=== PATIENT | female | born 1975 | race Caucasian/White ===

== ENCOUNTER 2019-07-07 17:42 | Emergency (ER) | payer SELFPAY ==
[~2019-07-07] VITALS: Ht 170.2 cm; Wt 100.0 kg
[2019-07-07 19:38] LABS: BASOPHILS % 0.3 % (0.0-2.0); EOSINOPHILS % 1.2 % (0.0-5.0); HEMATOCRIT. 29.6 % (36.0-48.0); HEMOGLOBIN. 9.6 g/dL (12.0-16.0); LYMPHOCYTES % 36.7 % (20.0-50.0); MEAN CORPUSCULAR HEMOGLOBIN 22.4 pg (28.0-32.0); MEAN CORPUSCULAR VOLUME 69.2 fL (81.0-99.0); MEAN PLATELET VOLUME 7.5 fl (7.4-10.4); MONOCYTES % 6.6 % (2.0-8.0); NEUTROPHILS % 55.2 % (40.0-76.0); PLATELET 344 x1000/uL (130-400); RED BLOOD CELL COUNT 4.27 mill/uL (4.2-5.4); RED CELL DISTRIBUTION WIDTH 21.8 % (11.6-14.6)
[2019-07-07 19:43] LABS: CHLORIDE 108 mEq/L (98-107)
[2019-07-07 19:54] LABS: B-HCG QUANTITATIVE < 1 mIU/mL (<3)
[2019-07-07 20:46] LABS: PLATELET ESTIMATE NORMAL
[2019-07-07] MEDS ORDERED: ACETAMINOPHEN 325MG TABLET PO ONE (21:15)
[2019-07-07] MEDS ORDERED: IBUPROFEN 400MG TABLET PO ONE (21:15)
[2019-07-07 21:43] VITALS: BP 165/85
== END 2019-07-07 21:46 | disposition home or self-care (01) ==
LOC: ER 17:42
DX: N93.9 Abnormal uterine and vaginal bleeding, unspecified (principal); R03.0 Elevated blood-pressure reading, without diagnosis of hypertension
CPT/HCPCS: 36415; 81025; 84702; 86850; 86900; 99283

== ENCOUNTER 2025-07-19 18:56 | Emergency (ER) | payer SELFPAY ==
[~2025-07-19] VITALS: Ht 167.6 cm; Wt 106.0 kg
[2025-07-19 18:59] VITALS: O2SAT 98
[2025-07-19 19:35] LABS: BASOPHILS % 0.5 % (0.0-2.0); EOSINOPHILS % 0.8 % (0.0-5.0); HEMATOCRIT. 41.8 % (36.0-48.0); HEMOGLOBIN. 14.0 g/dL (12.0-16.0); LYMPHOCYTES % 30.7 % (20.0-50.0); MEAN PLATELET VOLUME 7.1 fl (7.4-10.4); MONOCYTES % 7.3 % (2.0-8.0); NEUTROPHILS % 60.7 % (40.0-76.0); PLATELET 248 x1000/uL (130-400); RED BLOOD CELL COUNT 4.69 mill/uL (4.2-5.4); RED CELL DISTRIBUTION WIDTH 13.4 % (11.6-14.6)
[2025-07-19] MEDS: LABETALOL 5MG/ML 4ML INJ IV ONE (19:45)
[2025-07-19] MEDS: ACETAMINOPHEN 325MG TABLET PO ONE (19:45)
[2025-07-19 19:47] LABS: INR 1.1
[2025-07-19 19:57] LABS: CREATININE 0.6 mg/dL (0.6-1.0); UREA NITROGEN BLOOD 5 mg/dL (9-23)
[2025-07-19 19:58] LABS: TROPONIN I HIGH SENSITIVITY 4 ng/L (3.0-34)
[2025-07-19 19:59] LABS: ASPARTATE AMINOTRANSFERASE 19 IU/L (<34); BILIRUBIN DIRECT 0.1 mg/dL (<=3.0); BILIRUBIN TOTAL 0.5 mg/dL (0.1-1.0); PROTEIN TOTAL 6.9 g/dL (6.0-8.3)
[2025-07-19] MEDS: METOCLOPRAMIDE HCL 10MG TABLET PO ONE (20:39)
[2025-07-19] MEDS: DIPHENHYDRAMINE 50MG/ML VIAL IV ONE (20:39)
[2025-07-19] MEDS: KETOROLAC 30MG/ML VIAL IV ONE (20:39)
[2025-07-19 22:29] VITALS: BP 148/91; PULSE 65; RESP 16; TEMP 37.1; O2SAT 99
== END 2025-07-19 22:36 | disposition home or self-care (01) ==
LOC: ER 18:56 → CMPBEDREQ 07-20 08:52
DX: G43.909 Migraine, unspecified, not intractable, without status migrainosus (principal); I10 Essential (primary) hypertension; J45.909 Unspecified asthma, uncomplicated; Z79.899 Other long term (current) drug therapy; Z98.890 Other specified postprocedural states
CPT/HCPCS: 99285; 96374; 70450; 96375; 71045; 80076; 80048; 83880; 83735; 85025; 85610; 85730; 84484; 36415; 93005; J1885; J8597; J1200; J3490